=== PATIENT | male | born 1985 | race African-American/Black ===

== ENCOUNTER 2018-02-27 11:23 | Emergency (ER) | payer MEDICAID, OTHER ==
[~2018-02-27] VITALS: Ht 165.1 cm; Wt 90.7 kg
[2018-02-27 11:54] VITALS: BP 134/86
== END 2018-02-27 12:59 | disposition home or self-care (01) ==
LOC: ER 11:28
DX: S83.91XA Sprain of unspecified site of right knee, initial encounter (principal); F17.210 Nicotine dependence, cigarettes, uncomplicated; X50.1XXA Overexertion from prolonged static or awkward postures, initial encounter; Y93.89 Activity, other specified; Y92.89 Other specified places as the place of occurrence of the external cause; Y99.8 Other external cause status